=== PATIENT | female | born 1995 | race Caucasian/White ===

== ENCOUNTER 2020-11-28 04:42 | Emergency (ER) | payer BC ==
[~2020-11-28] VITALS: Ht 177.8 cm; Wt 100.0 kg
[2020-11-28 04:46] VITALS: BP 122/79
--- NOTE | 2020-11-28 04:57 | NUR ---
Walks to room 22, requested urine sample.
--- NOTE | 2020-11-28 05:06 | NUR ---
PT PROVIDED URINE SAMPLE, AND MD TO BEDSIDE TO TD FONTENOT.
--- NOTE | 2020-11-28 05:16 | NUR ---
NEW VERBAL ORDERS RECEIVED FROM MD. PIV TO BE STARTED, ONE LITER FLUID AND SOME ZOFRAN 4MG PIV. 20GPIV STARTED TO LEFT AC X1 ATTEMPT, AND PT TOLERATED WELL, AND IVF NS STARTED 1 LITER TR OVER ONE HOUR.
[2020-11-28] MEDS ORDERED: ONDANSETRON 2MG/ML, 2ML ONE (05:18)
[2020-11-28] MEDS ORDERED: SODIUM CHLORIDE 0.9%, 500ML IVBOLUS ONE (05:30)
[2020-11-28] MEDS ORDERED: ONDANSETRON 2MG/ML, 2ML IVPush ONE (05:30)
--- NOTE | 2020-11-28 06:15 | NUR ---
PIV D/C'D AND CATH TIP INTACT. PT TOLERATED WELL, AND IVF FINISHED. F/U AND D/C INSTRUCTIONS WITH PRESCRIPTIONS GIVEN TO PT AND SHE V/U. PT AMBULATORY AND SHOWN TO D/C DESK.
== END 2020-11-28 06:18 | disposition home or self-care (01) ==
LOC: ED 05:58
DX: R11.2 Nausea with vomiting, unspecified (principal); E86.0 Dehydration
CPT/HCPCS: 96361; 96374; 99283; J2405; J7040